=== PATIENT | male | born 1945 | race Two or more races ===

== ENCOUNTER 2018-04-15 18:39 | Emergency (ER) | payer SELFPAY ==
[~2018-04-15] VITALS: Ht 170.2 cm; Wt 63.0 kg
[2018-04-15 18:49] VITALS: Ht 170.2 cm; Wt 63.0 kg
[2018-04-15 21:37] VITALS: BP 154/87
== END 2018-04-15 21:37 | disposition home or self-care (01) ==
LOC: ED 18:39
DX: I10 Essential (primary) hypertension (principal); J98.01 Acute bronchospasm
CPT/HCPCS: J7613